=== PATIENT | female | born 1970 | race Caucasian/White ===

== ENCOUNTER 2016-11-11 21:50 | Emergency (ER) | payer MEDICAID ==
[~2016-11-11] VITALS: Ht 154.9 cm; Wt 70.3 kg
[~2016-11-11 21:50] MED LIST: ATOR20TA PO; CARV25TA PO; FURO-570 PO; HYDR-3229 PO; LEVEMIR SUBQ; METO5TAB PO; NOVR SUBQ; ONDA4ODT1 SL; SACC250C4 PO; VITA1TAB44 PO
[2016-11-11 21:53] VITALS: BP 155/76
--- NOTE | 2016-11-11 22:07 | NUR ---
Patient ambulated to bed 05.
--- NOTE | 2016-11-11 22:20 | NUR ---
PATIENT PRESENTS TO ED WITH C/O LEFT EYE PAIN . PT DENIES N/V/D; SKIN IS PINK/WARM/DRY; AAOX4 WITH EVEN AND STEADY GAIT; LUNGS CLEAR BL; HR EVEN AND REGULAR; PT DENIES ANY FEVER, CP, SOB, OR COUGH AT THIS TIME; PATIENT STATES PAIN OF 10/10 AT THIS TIME; VSS; PATIENT POSITIONED FOR COMFORT; HOB ELEVATED; BEDRAILS UP X2; BED DOWN. ER MD MADE AWARE OF PT STATUS.
--- NOTE | 2016-11-11 22:30 | NUR ---
PT HAD DBL LUMEN ON LEFT UPPER CHEST FOR DIALYSIS WHICH SHE RECIEVES ON / AND SAT.
--- NOTE | 2016-11-11 22:34 | NUR ---
Dr. Fisher evaluating patient at bedside.
[2016-11-11] MEDS ORDERED: TETRACAINE HCL/PF 0.5% OPTH 4 ML BTL ONE (22:37)
[2016-11-11] MEDS ORDERED: fentaNYL 0.05 MG/ML VIAL IVP ONE ×2 (22:45→23:50)
--- NOTE | 2016-11-11 23:00 | NUR ---
PT RECEIVES DIALYSIS TREATMENT ON AND FRIDAY.
[2016-11-11 23:21] LABS: BASOPHILS # (AUTO) 0.1 K/uL (0.00-0.22); BASOPHILS % (AUTO) 1.5 % (0.0-2.0); EOSINOPHILS # (AUTO) 0.2 K/uL (0-0.4); EOSINOPHILS % (AUTO) 3.4 % (0.0-4.0); HEMATOCRIT 31.8 % (36-48); HEMOGLOBIN 10.5 g/dL (12.0-16.0); LYMPHOCYTES # (AUTO) 1.8 K/uL (2.5-16.5); LYMPHOCYTES % (AUTO) 24.7 % (20.5-51.1); MEAN CORPUSCULAR HEMOGLOBIN 30 pg (27-31); MEAN CORPUSCULAR HGB CONC 33 g/dL (33-37); MEAN CORPUSCULAR VOLUME 90 fL (80-94); MONOCYTES # (AUTO) 0.8 K/uL (0.8-1.0); MONOCYTES % (AUTO) 10.9 % (1.7-9.3); NEUTROPHILS # (AUTO) 4.3 K/uL (1.8-7.7); NEUTROPHILS % (AUTO) 59.5 % (42.2-75.2); PLATELET COUNT (AUTO) 299 K/uL (140-450); RED BLOOD CELL COUNT(AUTO) 3.52 MIL/uL (4.20-5.40); RED CELL DISTRIBUTION WIDTH 14.2 % (11.6-13.7); WHITE BLOOD COUNT (AUTO) 7.2 K/uL (4.8-10.8)
[2016-11-11 23:26] LABS: ANION GAP 11.3 (8-16); CALCIUM 9.4 mg/dL (8.5-10.1); CARBON DIOXIDE 29.4 mmol/L (21-32); CREATININE 3.2 mg/dL (0.6-1.3); POTASSIUM 3.7 mmol/L (3.5-5.1)
[2016-11-11] MEDS ORDERED: TIMOLOL OP 0.5% 5 ML BTL OP ONE (23:50)
--- NOTE | 2016-11-12 00:15 | NUR ---
[facility] EMESIS NOTED.
--- NOTE | 2016-11-12 00:26 | NUR ---
Patient to be transferred to [facility]. Is being transferred due to HIGHER LEVEL OF CARE WITH SPECIALTY FOR [facility]. Receiving facility has accepting physician and available space. ER physician has signed transfer form. Patient or responsible libertarian has agreed to transfer and signed form. Patient belongings inventoried and will be sent with patient. Copy of nursing notes, lab reports, EKG, Physicians Orders and X-rays to be sent with patient. Report called to DEX LARIOS at receiving facility. [facility] ambulance service has been called for transfer. ETA is 30MIN.
--- NOTE | 2016-11-12 00:33 | NUR ---
[facility] transport team at bedside.
[2016-11-12 00:40] VITALS: BP 148/80
== END 2016-11-12 00:33 | disposition short-term general hospital (02) ==
LOC: MED 21:50
DX: H54.0 Blindness, both eyes (principal); E11.22 Type 2 diabetes mellitus with diabetic chronic kidney disease; I12.0 Hypertensive chronic kidney disease with stage 5 chronic kidney disease or end stage renal disease; N18.6 End stage renal disease; Z88.5 Allergy status to narcotic agent; J45.909 Unspecified asthma, uncomplicated; E78.5 Hyperlipidemia, unspecified
CPT/HCPCS: 36415; 80048; 85025; 85651; 96374; 96376; 99285; J3010